=== PATIENT | male | born 1965 | race Caucasian/White ===

== ENCOUNTER 2019-03-07 23:48 | Emergency (ER) | payer OTHER ==
[~2019-03-07] VITALS: Ht 167.6 cm; Wt 104.0 kg
[2019-03-08] MEDS: NITROGLYCERIN OINT 1GM/INCH UDPKT TD ONE (00:51)
[2019-03-08 00:55] LABS: BASOPHILS % 0.5 % (0.0-2.0); EOSINOPHILS % 0.8 % (0.0-5.0); HEMATOCRIT. 46.4 % (42.0-52.0); LYMPHOCYTES % 21.9 % (20.0-50.0); MEAN CORPUSCULAR HEMOGLOBIN 29.6 pg (28.0-32.0); MEAN CORPUSCULAR VOLUME 85.8 fL (80.0-94.0); MEAN PLATELET VOLUME 9.1 fl (7.4-10.4); MONOCYTES % 7.2 % (2.0-8.0); NEUTROPHILS % 69.6 % (40.0-76.0); PLATELET 232 x1000/uL (130-400); RED CELL DISTRIBUTION WIDTH 13.6 % (11.6-14.6)
[2019-03-08] MEDS: SODIUM CHLORIDE 0.9% 1,000 ML IV ONE (00:56)
[2019-03-08 01:06] LABS: CHLORIDE 106 mEq/L (98-107)
[2019-03-08 02:13] VITALS: BP 132/80
== END 2019-03-08 03:40 | disposition short-term general hospital (02) ==
LOC: ER 23:48 → CANBEDREQ 03-08 04:45
DX: R07.2 Precordial pain (principal); I10 Essential (primary) hypertension
CPT/HCPCS: 36415; 71045; 80053; 83880; 84484; 85025; 85379; 93005; 99285; J7030